=== PATIENT | female | born 1985 | race Caucasian/White ===

== ENCOUNTER 2017-06-25 00:21 | Emergency (ER) | payer OTHER ==
[2017-06-25 00:30] VITALS: BP 143/61; BMI 25.0
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
[2017-06-25] MEDS ORDERED: TORADOL TAB PO ONE ×2 (03:14→03:15)
== END 2017-06-25 03:15 | disposition short-term general hospital (02) ==
LOC: ER 00:21
DX: S16.1XXA Strain of muscle, fascia and tendon at neck level, initial encounter (principal); S29.019A Strain of muscle and tendon of unspecified wall of thorax, initial encounter; S80.12XA Contusion of left lower leg, initial encounter; S09.8XXA Other specified injuries of head, initial encounter; V87.7XXA Person injured in collision between other specified motor vehicles (traffic), initial encounter
CPT/HCPCS: 70450; 72125; 72128; 73590; 99283